=== PATIENT | male | born 1945 | race Caucasian/White ===

== ENCOUNTER 2016-12-20 09:44 | Day surgery (SDC) | payer OTHER, BC ==
[~2016-12-20] VITALS: Ht 177.8 cm; Wt 102.0 kg
[~2016-12-20 09:44] MED LIST: ASPIRIN81 M2 PO; ATORVASTATIN CA80 MG PO; CALAN SR,COVER180 MG PO; DIOVAN HCT 31 TABLE1 PO; DOXAZOSIN MESYLA2 MG PO; ISOSORBIDE MONO30 MG PO; KLOR-CON M2020 MEQ PO; NITROSTAT0.4 MG SL
== END 2016-12-20 16:50 | disposition home or self-care (01) ==
LOC: CATH 09:44
DX: I25.10 Atherosclerotic heart disease of native coronary artery without angina pectoris (principal); I25.82 Chronic total occlusion of coronary artery; I10 Essential (primary) hypertension; E78.2 Mixed hyperlipidemia; E66.9 Obesity, unspecified; Z68.33 Body mass index [BMI] 33.0-33.9, adult; Z79.82 Long term (current) use of aspirin
CPT/HCPCS: C1769; C1887; J1644; J2250; J3010